=== PATIENT | female | born 2000 | race Native Hawaiian/Other Pacific Islander ===

== ENCOUNTER 2020-02-08 21:32 | Inpatient (IN) | payer OTHER ==
[2020-02-09] MEDS ORDERED: PROMETHAZINE 25 MG/1 ML VIAL IM ONE (00:06)
[2020-02-09] MEDS ORDERED: MORPHINE 10 MG/ML VIAL IM ONE (00:06)
[2020-02-09] MEDS ORDERED: miSOPROStoL 200 MCG TABLET BC PRN (00:08)
[2020-02-09] MEDS ORDERED: OXYTOCIN 10 UNIT/ML VIAL IM PRN (00:08)
[2020-02-09] MEDS ORDERED: SODIUM CHLORIDE FLUSH 0.9% 10 ML SYRINGE IVP PRN (00:08)
[2020-02-09] MEDS ORDERED: ONDANSETRON 4 MG/2 ML VIAL IVP PRN ×2 (00:08→11:31)
[2020-02-09] MEDS ORDERED: LIDOCAINE-MPF 1% 30 ML VIAL ID PRN (00:08)
[2020-02-09] MEDS ORDERED: TRANEXAMIC ACID 1,000 MG in SODIUM CHLORIDE 0.9% 100ML 100 ML IV PRN (00:08)
[2020-02-09] MEDS ORDERED: CARBOPROST TROMETHAMINE 250 MCG/ML AMP IM PRN (00:08)
[2020-02-09] MEDS ORDERED: METHYLERGONOVINE 0.2 MG/ML VIAL IM PRN (00:08)
--- NOTE | 2020-02-09 00:13 | HISTORY & PHYSICAL EXAMINATION ---
Admit History - : 1 Parity: 0 Care: positive: [place] Risk/History: positive: None Complications This : positive: None - Mother's Labs Mother's Blood Type: positive: B Mother's RH: positive: Positive GBS: positive: Group B Step Negative Rubella Status: positive: Non-immune - Other Maternal History Other Maternal History: Patient is a 19 yo at 39+6 wga here in early labor Has been having contractions for several days, now Q3-5 min. Significant pressure. No LOF or VB. Endorses FM. Unchanged on serial exams but wants to proceed with augmentation. Desires therapeutic rest overnight. uncomplicated. Hx of latent TB, treated with ppx. Neg CXR. Rubella non-immune Initial U/S: 10.4wks c/w LMP for CHARLENE of 02/09/2020 B pos/Rubella - is now *NON immune* discussed MMR VZV immune Gentic testing: Quad- neg. CF neg FAS: 85% for weight. 3Vc. placenta posterior, RIA wnl. Glucola 101 TDAP 11/10/2019 GBS & GC/CT at 38.0 weeks at intital OB- neg/neg HSV: denies self and partner Breast pump Rx: given 01/26/2020 MOD: . "Wait and see" FOB: Tao. baby GIRL: name is SECRET pp contraception: PAP: 07/23/2019- negative (shift indicative of BV) Meds/Allgy - Home Medications Home Medications: Ambulatory Orders Medication Instructions Recorded Confirmed Iron,Carbonyl/Folic Acid/Mv-Mn 1 each PO 02/08/20 [Active Fe Tablet] No122/Iron/Folic Acid 324 PO DAILY 02/08/20 [ Multi Tablet] - Allergies Allergies/Adverse Reactions: Allergies Allergy/AdvReac Type Severity Reaction Status Date / Time No Known Drug Allergies Allergy Verified 02/08/20 22:25 Review of Systems - Other Findings Other Findings: As per HPI, otherwise remaining systems are negative. Physical - Abdominal Exam Vital Signs: Temp Pulse Resp BP Pulse Ox 98.1 F 73 20 120/80 100 02/08/20 22:09 02/08/20 22:09 02/08/20 22:09 02/08/20 22:02/08/20 22:09 Contraction Frequency (min/apart): Q3-5 min Contraction Intensity: positive: Moderate Uterine Resting Tone: positive: Soft - Monitoring Heart Rate Baseline: 130 mod zain 15x15 accels no decels Strip Review: positive: Category I - Presentation Presentation: positive: Vertex - Vaginal Exam Dilation (in cm): 3 Effacement (%): 80 Station: positive: -1 - Other Notes Labor Progress Note/Additional Text: RN exam for SVE GEN: NAD RESP: nl effort CV: RR ABD: gravid, S&NT, intermittent ctx NEURO: A&O PSYCH: appropriate affect Plan for Labor - Plan For Labor Plan for Labor: LATENT LABOR: Patient is not tolerating contractions and has been having intense contractions Q3-5 min No change in SVE Offered options of 1) going home 2) therapeutic rest 3) augmentation Patient is interested in therapeutic rest overnight with plan to augment in the am Does not want to go home and desires delivery of infant Morphine 5 mg IM with phenergan 25 mg IM x1 Admit to Observation FWB: Vertex, well grown, Cat I tracing, GBS neg -CEFM PAIN: Will have therapeutic rest overnight -Epidural as desired once labor ensures Admit to Observation
[2020-02-09] MEDS ORDERED: SODIUM CHLORIDE FLUSH 0.9% 10 ML SYRINGE IVP SCH (01:00)
[2020-02-09] MEDS ORDERED: OXYTOCIN/SODIUM CHLORIDE 500 ML IV SCH (01:00)
[2020-02-09 01:05] LABS: BASOPHILS % (AUTO) 0.3 %; EOSINOPHILS # (AUTO) 0.2 10^3/uL (0.0-0.7); EOSINOPHILS % (AUTO) 1.7 %; HGB - HEMOGLOBIN 12.4 g/dL (12.0-16.0); LYMPHOCYTES # (AUTO) 1.6 10^3/uL (1.5-3.5); LYMPHOCYTES % (AUTO) 14.6 %; MEAN CORPUSCULAR HEMOGLOBIN 31.3 pg (27.0-31.0); MEAN CORPUSCULAR HGB CONC 34.1 g/dL (32.0-36.0); MEAN CORPUSCULAR VOLUME 91.9 fL (81.0-99.0); MEAN PLATELET VOLUME 10.2 fL (7.9-10.8); MONOCYTES # (AUTO) 0.7 10^3/uL (0.0-1.0); NEUTROPHILS # (AUTO) 8.1 10^3/uL (1.5-6.6); PLT - PLATELET COUNT 204 10^3/uL (130-450); RED BLOOD COUNT 3.96 10^6/uL (4.20-5.40); RED CELL DISTRIBUTION WIDTH 12.6 % (12.0-15.0); WHITE BLOOD COUNT 10.6 x10^3/uL (4.8-10.8)
[2020-02-09] MEDS: LACTATED RINGERS 1,000 ML IV SCH ×2 (01:08→18:17)
--- NOTE | 2020-02-09 07:50 | PROVIDER PROGRESS NOTE ---
Subjective - Prog Note Date Prog Note Date: 02/09/20 Prog Note Time: 07:30 - Subjective Subjective: Patient continues to contract after therapeutic rest overnight. Cat I tracing SVE /-2 with bulging bag; minimal change in last 2 hours Will proceed with pitocin augmentation Written consent obtained Starting pit per protocol GBS neg Objective - Lab Results Fish Bones: 02/09/20 00:31 Other Labs: Lab Results x24hrs 02/09/20 Range/Units 00:31 WBC 10.6 (4.8-10.8) x10^3/uL RBC 3.96 L (4.20-5.40) 10^6/uL Hgb 12.4 (12.0-16.0) g/dL Hct 36.4 L (37.0-47.0) % MCV 91.9 (81.0-99.0) fL MCH 31.3 H (27.0-31.0) pg MCHC 34.1 (32.0-36.0) g/dL RDW 12.6 (12.0-15.0) % Plt Count 204 (130-450) 10^3/uL MPV 10.2 (7.9-10.8) fL Neut # (Auto) 8.1 H (1.5-6.6) 10^3/uL Lymph # (Auto) 1.6 (1.5-3.5) 10^3/uL [place] # (Auto) 0.7 (0.0-1.0) 10^3/uL Eos # (Auto) 0.2 (0.0-0.7) 10^3/uL Baso # (Auto) 0.0 (0.0-0.1) 10^3/uL Absolute Nucleated RBC 0.00 x10^3/uL Nucleated RBC % 0.0 /100WBC
[2020-02-09] MEDS ORDERED: miSOPROStoL 100 MCG TABLET BC SCH (08:00)
--- NOTE | 2020-02-09 11:07 | ANESTHESIA ---
Pre-Anesthesia VS, & Labs - Diagnosis active labor - Procedure vaginal delivery Vital Signs: Temp Pulse Resp BP Pulse Ox 36.8 C 70 16 116/76 100 02/09/20 07:15 02/09/20 07:15 02/09/20 07:15 02/09/20 07:15 02/08/20 22:09 Height 5 ft Weight (kg) 76.204 kg - NPO Other (clear liquids) - Is Patient ?: Yes - Lab Results Current Lab Results: Laboratory Tests 02/09/20 00:31: WBC 10.6, RBC 3.96 L, Hgb 12.4, Hct 36.4 L, MCV 91.9, MCH 31.3 H , MCHC 34.1, RDW 12.6, Plt Count 204, MPV 10.2, Neut # (Auto) 8.1 H, Lymph # (Auto) 1.6, [place] # (Auto) 0.7, Eos # (Auto) 0.2, Baso # (Auto) 0.0, Absolute Nucleated RBC 0.00, Nucleated RBC % 0.0 Fish Bones: 02/09/20 00:31 Home Medications and Allergies Home Medications: Ambulatory Orders Iron,Carbonyl/Folic Acid/Mv-Mn [Active Fe Tablet] 1 each PO 02/08/20 No122/Iron/Folic Acid [ Multi Tablet] 324 PO DAILY 02/08/20 Active Medications Acetaminophen (Tylenol) 650 mg PO Q6H PRN PRN Reason: Pain or Fever Carboprost Tromethamine (Hemabate) 250 mcg IM Q15M PRN PRN Reason: Step 4: Hemorrhage protocol Stop: 02/11/20 00:08 Lactated Ringer's (Lr) 1,000 mls @ 100 mls/hr IV .Q10H CHADD Last Admin: 02/09/20 01:08 Dose: 100 mls/hr Documented by: Oxytocin/Sodium Chloride (Pitocin/Sodium Chloride) 500 mls @ 999 mls/hr IV PRN PRN; Protocol PRN Reason: POST- HEMORR PREVENTION Stop: 02/11/20 00:08 Tranexamic Acid 1,000 mg/ (Sodium Chloride) 110 mls @ 660 mls/hr IV ONCE PRN PRN Reason: EBL >1200mL and within 3hr Stop: 02/11/20 00:08 Oxytocin/Sodium Chloride (Pitocin/Sodium Chloride) 500 mls @ 1 mls/hr IV TITR CHADD; Protocol Last Titration: 02/09/20 09:15 Dose: 4 milliunit/min, 4 mls/hr Documented by: Lidocaine HCl (Xylocaine-Mpf 1% Vial) 30 ml ID ONCE PRN PRN Reason: PERINEAL REPAIR Stop: 02/11/20 00:08 Methylergonovine Maleate (Methergine Inj) 0.2 mg IM ONCE PRN PRN Reason: Step 2: Hemorrhage protocol Stop: 02/11/20 00:08 Misoprostol (Cytotec) 800 mcg BC ONCE PRN PRN Reason: Step 3: Hemorrhage protocol Stop: 02/11/20 00:08 Misoprostol (Cytotec) 50 mcg BC Q4HR CHADD Ondansetron HCl (Zofran Inj) 4 mg IVP Q4HR PRN PRN Reason: Nausea / Vomiting Oxytocin (Pitocin) 10 unit IM ONCE PRN PRN Reason: Step one: If no IV access Stop: 02/11/20 00:08 Sodium Chloride (Normal Saline Flush 0.9%) 10 ml IVP 0100,0900,1700 CHADD Sodium Chloride (Normal Saline Flush 0.9%) 10 ml IVP PRN PRN PRN Reason: NEEDED PER PROVIDER ORDERS Iron,Carbonyl/Folic Acid/Mv-Mn [Active Fe Tablet] 1 each PO 02/08/20 No122/Iron/Folic Acid [ Multi Tablet] 324 PO DAILY 02/08/20 Allergies/Adverse Reactions: Allergies Allergy/AdvReac Type Severity Reaction Status Date / Time No Known Drug Allergies Allergy Verified 02/08/20 22:25 Anes History & Medical History - Anesthetic History Family history of Anesthesia Complications: Denies Family history of Malignant Hyperthermia: Denies - Medical History Cardiovascular: reports: None Pulmonary: reports: Tuberculosis (history of latent) Gastrointestinal: reports: None Urinary: reports: None Neuro: reports: None Musculoskeletal: reports: None Endocrine/Autoimmune: reports: None Blood Disorders: reports: None Skin: reports: None Smoking Status: Never smoker Psychosocial: reports: No issues indicated - Obstetrical History : 1 Parity: 0 Events: positive: None Complications: positive: None Exam General: Alert, Oriented x3, Cooperative, No acute distress Dental: WNL Mouth Openin Fingerbreadth Neck Mobility: Normal Mallampati classification: II Mental/Cognitive Status: Alert/Oriented X3, Normal for patient Plan Anesthesia Type: Epidural Consent for Procedure(s) Verified and Reviewed: Yes Code Status: Attempt Resuscitation ASA classification: 2-Mild systemic disease Is this case an emergency?: No
[2020-02-09] MEDS ORDERED: ROPIVACAINE 0.2% 200 MG/100 ML BAG EP ONE (11:10)
[2020-02-09] MEDS ORDERED: ePHEDrine 50 MG/ML VIAL IVP PRN (11:31)
[2020-02-09] MEDS ORDERED: NALBUPHINE 10 MG/ML AMP IVP PRN (11:31)
[2020-02-09] MEDS ORDERED: NALOXONE 0.4 MG/ML VIAL IVP PRN (11:31)
[2020-02-09] MEDS ORDERED: ROPIVACAINE 0.2% 200 MG/100 ML BAG EP PRN (11:31)
[2020-02-09] MEDS: ACETAMINOPHEN 325 MG TABLET PO PRN ×2 (18:09→23:50)
--- NOTE | 2020-02-09 19:40 | PROVIDER PROGRESS NOTE ---
Subjective - Prog Note Date Prog Note Date: 02/09/20 Prog Note Time: 17:35 - Subjective Subjective: Late entry. Patient is comfortable with epidurdal. Sitting in high Fowlers. Chucks shows blood tinged fluid suggestive of SROM, timing unknown. UOP has slowed byt is still appropriate. Had 30 cc over the last hour and 100 cc over 3 hours. Pitocin at 4 mU/min. SVE showed 2 cm posterior lip and 1 cm on side. Forebag was ruptured artificially. Blood tinged fluid. Cat I tracing Cont with IOL Anticipate Objective - Vital Signs/Intake & Output Intake & Output: Intake & Output 02/06/20 02/07/20 02/08/20 02/09/20 23:59 23:59 23:59 23:59 Intake Total 1002.984 Output Total 30 Balance 972.984 - Lab Results Fish Bones: 02/09/20 00:31 Other Labs: Lab Results x24hrs 02/09/20 Range/Units 00:31 WBC 10.6 (4.8-10.8) x10^3/uL RBC 3.96 L (4.20-5.40) 10^6/uL Hgb 12.4 (12.0-16.0) g/dL Hct 36.4 L (37.0-47.0) % MCV 91.9 (81.0-99.0) fL MCH 31.3 H (27.0-31.0) pg MCHC 34.1 (32.0-36.0) g/dL RDW 12.6 (12.0-15.0) % Plt Count 204 (130-450) 10^3/uL MPV 10.2 (7.9-10.8) fL Neut # (Auto) 8.1 H (1.5-6.6) 10^3/uL Lymph # (Auto) 1.6 (1.5-3.5) 10^3/uL [place] # (Auto) 0.7 (0.0-1.0) 10^3/uL Eos # (Auto) 0.2 (0.0-0.7) 10^3/uL Baso # (Auto) 0.0 (0.0-0.1) 10^3/uL Absolute Nucleated RBC 0.00 x10^3/uL Nucleated RBC % 0.0 /100WBC
--- NOTE | 2020-02-09 20:04 | PROVIDER PROGRESS NOTE ---
Subjective - Prog Note Date Prog Note Date: 02/09/20 Prog Note Time: 19:59 - Subjective Subjective: No significant change in SVE from prior exam. Pitocin had been at 5 mU/min for an extended period Offered IUPC, RN feels comfortable increasing pitocin more aggressively. CTX had been spacing to Q4-5 min for periods Blood tinged fluid Cat I tracing Increase pitocin more aggressively If no change within the hour, will placed IUPC. Objective - Vital Signs/Intake & Output Intake & Output: Intake & Output 02/06/20 02/07/20 02/08/20 02/09/20 23:59 23:59 23:59 23:59 Intake Total 1002.984 Output Total 30 Balance 972.984 - Lab Results Fish Bones: 02/09/20 00:31 Other Labs: Lab Results x24hrs 02/09/20 Range/Units 00:31 WBC 10.6 (4.8-10.8) x10^3/uL RBC 3.96 L (4.20-5.40) 10^6/uL Hgb 12.4 (12.0-16.0) g/dL Hct 36.4 L (37.0-47.0) % MCV 91.9 (81.0-99.0) fL MCH 31.3 H (27.0-31.0) pg MCHC 34.1 (32.0-36.0) g/dL RDW 12.6 (12.0-15.0) % Plt Count 204 (130-450) 10^3/uL MPV 10.2 (7.9-10.8) fL Neut # (Auto) 8.1 H (1.5-6.6) 10^3/uL Lymph # (Auto) 1.6 (1.5-3.5) 10^3/uL [place] # (Auto) 0.7 (0.0-1.0) 10^3/uL Eos # (Auto) 0.2 (0.0-0.7) 10^3/uL Baso # (Auto) 0.0 (0.0-0.1) 10^3/uL Absolute Nucleated RBC 0.00 x10^3/uL Nucleated RBC % 0.0 /100WBC
[2020-02-09] MEDS ORDERED: SODIUM CHLORIDE 0.9% MINIBAG 100 ML IV ONE (21:43)
[2020-02-09] MEDS ORDERED: PIPERACILLIN/TAZOBACTAM 3.375 GM in SODIUM CHLORIDE 0.9% MINIBAG 100 ML IV SCH (22:00)
[2020-02-09] MEDS: OXYTOCIN/SODIUM CHLORIDE 500 ML IV PRN ×2 (22:25→23:01)
[2020-02-09] MEDS ORDERED: miSOPROStoL 100 MCG TABLET BC ONE (22:53)
[2020-02-09] MEDS ORDERED: miSOPROStoL 200 MCG TABLET ONE (22:56)
--- NOTE | 2020-02-09 23:21 | DELIVERY NOTE ---
Delivery Note - Labor Labor: positive: Induced by oxytocin - Infant Delivery Method Delivery Method: positive: Spontaneous vaginal delivery - Cervical Ripening Method Cervical Ripening Method: positive: Oxytocin - Presentation Presentation: positive: Vertex - Nuchal Cord Nuchal Cord: positive: None - Anesthetic Anesthetic Type: - Amniotic Fluid Description Amniotic Fluid Description: positive: Clear, Bloody - Laceration Laceration: positive: 2nd degree, Labial - Suture Suture Type: positive: Vicryl Suture Size: positive: 3-0 - Delivery Outcome Delivery Outcome: positive: Livebirth - [place]: positive: Placed in direct skin contact with mother, Stimulated, Warmed, [place] used [place] sex: positive: Female - Cord Cord: positive: 3 vessels - Placenta Placenta: positive: Intact, Expressed - Estimated Blood Loss Estimated Blood Loss (in cc): 300 - Post Delivery Events Post Delivery Events: positive: No post delivery events - Delivery Comments (Free Text/Narrative) Delivery Comments (Free Text/Narrative): STAGE I: Patient is a 19 yo at 39+6 wga who presented in early labor. She had been having contractions for several days, now Q3-5 min. Initial SVE was 3/80/-1. Unchanged on serial exams but wanted to proceed with augmentation due to exhaustion in the setting of prolonged latent stage. Desired therapeutic rest overnight. Received morphine 5 mg and phenergan 25 mg IM and rested overnight. On the morning of 02/09/20, cervix was 4 cm dilated but continued to make slow progress. She was augmented with pitocin through the second stage, reaching a max dose of 9 mU/min. Epidural for pain management. GBS negative, antibiotics were not indicated. At approximately 17:20, it appeared that membranes had spontaneously ruptured. A forebag was artificially ruptured and amniotic fluid was blood tinged. She progressed to complete at 21:20. She had one febrile temperature and several borderline febrile temperatures despite administration of acetaminophen 1000 mg. Neither patient for fetus showed tachycardia. However, given the proximity of the febrile tempt to the second stage, a dose of piperacillin-tazobactam 3.375 mg IV was given. Category I tracing throughout Stage I labor. STAGE II: Patient pushed well for 57 minutes to deliver a viable female infant from vertex presentation. Head and shoulders delivered without difficulty. was delivered to patient's chest. Cord was clamped x2 and cut after cessations had ceased. No nuchal cord. Apgars were 8/9, weight 2955g. STAGE III: Placenta delivered at 22:30 with manual expression and gentle downward traction on the umbilical cord. It was examined and found to be intact. Examination of the perineum revealed bilateral 2nd degree labial lacerations. They were repaired in the usual sterile fashion with 3-0 Vicryl. Blood loss was slightly greater than expected at 300 mL. Patient received misoprostol 600 mcg BC to assist in maintaining uterine atony. Good hemostasis was noted.
[2020-02-09] MEDS ORDERED: SIMETHICONE CHEW 80 MG TABLET PO PRN (23:34)
[2020-02-09] MEDS ORDERED: ONDANSETRON ODT 4 MG TABLET TL PRN (23:34)
[2020-02-09] MEDS ORDERED: DOCUSATE SODIUM 100 MG CAPSULE PO PRN (23:34)
[2020-02-09] MEDS ORDERED: HYDROCORTISONE 1% CREAM 28 GM TUBE PR PRN (23:34)
[2020-02-09] MEDS ORDERED: LACTATED RINGERS 1,000 ML IV SCH (23:45)
[2020-02-10] MEDS: IBUPROFEN 600 MG TABLET PO SCH ×2 (00:12→17:23)
[2020-02-10] MEDS ORDERED: LIDOCAINE-MPF 1% 5 ML VIAL ONE (01:20)
[2020-02-10] MEDS ORDERED: PIPERACILLIN/TAZOBACTAM 3.375 GM in SODIUM CHLORIDE 0.9% MINIBAG 100 ML IV ONE (09:00)
[2020-02-10] MEDS: ACETAMINOPHEN 500 MG TABLET PO SCH (17:23)
[2020-02-11] MEDS: ACETAMINOPHEN 500 MG TABLET PO SCH ×2 (01:54→16:14)
[2020-02-11] MEDS: IBUPROFEN 600 MG TABLET PO SCH ×3 (06:11→14:05)
--- NOTE | 2020-02-11 07:58 | PROVIDER PROGRESS NOTE ---
Subjective - Prog Note Date Prog Note Date: 02/10/20 Prog Note Time: 11:30 - Subjective Subjective: Up and ambulating. Tolerating po. Pain well managed Voiding Objective - Vital Signs/Intake & Output Reviewed Vital Signs: Yes Vital Signs: Vital Signs x48h Temp Pulse Resp BP Pulse Ox 02/11/20 05:54 56 L 126/86 H 02/11/20 04:45 97.5 F L 58 L 16 156/93 H 100 02/11/20 00:08 97.3 F L 62 16 106/78 98 Intake & Output: Intake & Output 02/08/20 02/09/20 02/10/20 02/11/20 23:59 23:59 23:59 23:59 Intake Total 1502.984 Output Total 230 200 Balance 1272.984 -200 - Objective General Appearance: positive: No acute distress Respiratory: positive: Breath sounds nml Cardiovascular: positive: Regular rate & rhythm Abdomen: positive: Non-tender, Other (FF belowumbi) Skin: positive: Color nml Extremities: positive: Non-tender, No pedal edema - Lab Results Fish Bones: 02/09/20 00:31 Assessment/Plan - Problem List (1) Vaginal delivery Impression: Routine pp care Anticipate DC home tomorrow
--- NOTE | 2020-02-11 16:34 | PROVIDER PROGRESS NOTE ---
Subjective - Prog Note Date Prog Note Date: 02/11/20 Prog Note Time: 16:32 - Subjective Subjective: Patient is doing well. Has been up and ambulating, tolerating po, pain well managed. Voiding. being observed until tomorrow am. Labile BPs in mild r jewell and then normal on next assessment. No PIH symptoms. Objective - Vital Signs/Intake & Output Vital Signs: Vital Signs x48h Temp Pulse Resp BP Pulse Ox 02/11/20 15:51 97.5 F L 56 L 20 146/93 H 100 02/11/20 12:23 97.3 F L 62 18 138/89 H 100 Intake & Output: Intake & Output 02/08/20 02/09/20 02/10/20 02/11/20 23:59 23:59 23:59 23:59 Intake Total 9204.316 2465.016 Output Total 230 200 Balance 1325.984 -200 1750.016 - Objective General Appearance: positive: No acute distress Neck: positive: Nml inspection Respiratory: positive: No respiratory distress Cardiovascular: positive: Other (RR) Peripheral Pulses: 1+ Dorsalis pedis (R), 1+ Dorsalis pedis (L) Abdomen: positive: Non-tender, Other (FF below umbi No RUQ pain) Back: positive: Nml inspection Skin: positive: Color nml Extremities: positive: Non-tender, No pedal edema - Lab Results Fish Bones: 02/09/20 00:31 Assessment/Plan - Problem List (1) Vaginal delivery Impression: Routine post op care Anticiprate DC home tomorrow Monitor BPs
[2020-02-11] MEDS ORDERED: MEASLES,MUMPS & RUBELLA VACC 0.5 ML VIAL SUBQ ONE (16:35)
[2020-02-12] MEDS: IBUPROFEN 600 MG TABLET PO SCH ×2 (00:43→09:24)
[2020-02-12] MEDS: ACETAMINOPHEN 500 MG TABLET PO SCH (09:24)
[2020-02-12] MEDS ORDERED: MEASLES,MUMPS & RUBELLA VACC 0.5 ML VIAL SUBQ ONE (10:00)
[2020-02-12 16:01] VITALS: BP 130/86
--- NOTE | 2020-02-12 19:31 | Labor Flowsheet ---
Labor Flowsheet Datetime Report Generated by CPN: 02/12/2020 19:31 Datetime: 02/10/2020 00:31 VITAL SIGNS NBP Sys/Juana/Mean (mmHg): 147 : 81 : 97 Pulse: 73 Datetime: 02/09/2020 23:00 Temperature Route: Oral Datetime: 02/09/2020 22:46 Respirations: 18 SpO2 (%): 100 Datetime: 02/09/2020 22:40 Anesthesia Comments: epidural pump off Datetime: 02/09/2020 22:30 Stage of : Recovery Temperature (C): 36.8 Pain Presence: Intermittent Pain Type: Cramping Datetime: 02/09/2020 22:20 LaborFlag: Labor Datetime: 02/09/2020 22:15 UTERINE ACTIVITY Monitor Mode: External Frequency (min): 2-3 Quality: Strong Duration (sec): 40-60 Pattern: Normal: <= 5 Contractions in 10 Minutes Resting Tone (Palpate): Relaxed ASSESSMENT A Monitor Mode: External US FHR Baseline Rate : 150 FHR Baseline Changes: No Baseline Change Variability: Moderate 6-25 bpm Accelerations: 15X15 Category: Category II Datetime: 02/09/2020 22:00 Decelerations: Variable ANESTHESIA Anesthesia Plans: Epidural Anesthesia Level Check: T9 Datetime: 02/09/2020 21:52 STAGE 2 Pushing Progress: Descent with Pushing Datetime: 02/09/2020 21:50 MEDICATIONS Pitocin (milliunits): Increased to @ 9 Datetime: 02/09/2020 21:30 PAIN Pain Scale: 10 (Annotations: pushing PCEA button) Datetime: 02/09/2020 21:28 Comments: lauren out 400ml Datetime: 02/09/2020 21:20 VAGINAL EXAM Dilatation (cm): 10.0 Datetime: 02/09/2020 21:15 Monitor Interventions for UA: [place] Adjusted Monitor Interventions for FHR: Ultrasound Adjusted Datetime: 02/09/2020 20:57 Patient Position/Activity: Left Lateral Patient Care Comments: Dr Mcsorley notified of L-side pain Datetime: 02/09/2020 20:47 TEACHING Instructional Method: Patient Instructed Plan of Care: Plan of Care Discussed; Labor Unit Routine: Monitoring; IV Pumps; Safety/Fall Risk Prevention Labor/Induction: Augmentation Datetime: 02/09/2020 20:15 Pitocin Checklist: At Least 1 Acceleration of 15 bpm x 15 Seconds in 30 Minutes or Adequate Variabi lity Datetime: 02/09/2020 19:53 Exam by: Dr Frieda Cervix, Consistency: Soft Vaginal Exam Comments: cervix still swollen Datetime: 02/09/2020 19:40 MATERNAL ASSESSMENT Level of Consciousness: Alert Headache: Denies Breath Sounds, Left: Clear and Equal Breath Sounds, Right: Clear and Equal Nausea/Vomiting: Denies RUQ Epigastric Pain: Denies Datetime: 02/09/2020 19:00 Vital Sign Comments: Dr. Dexter notified of elevated temperature. COMMUNICATION Communication: Report Given to @ [facility] RN Communication Comments: Shift report Datetime: 02/09/2020 18:09 Analgesics/Sedatives: Tylenol (mg) @ 650 Datetime: 02/09/2020 17:26 Membrane Status: Ruptured Membranes Ruptured Date/Time: 02/09/2020 17:26 Membranes Rupture Method: Artificial Amniotic Fluid Color: Bloody Amniotic Fluid Amount: Moderate Membrane Comments: SROM @ 1726; Dr. Dexter AROMed bulging forebag. Datetime: 02/09/2020 16:41 Provider Notified (Name): Dr. Malave Datetime: 02/09/2020 16:30 Effacement (%): 90 Station: 0 Vaginal Bleeding: Normal Show Cervix, Position: Midposition Datetime: 02/09/2020 13:45 PATIENT CARE Oxygen Method: Room Air Datetime: 02/09/2020 12:35 I/O Interventions: Lauren Cath Inserted Datetime: 02/09/2020 11:18 Epidural Procedure: Test Dose Datetime: 02/09/2020 11:09 PROCEDURE TIME OUT Procedure Verify: Correct Patient Identity; Accurate Procedure Consent Form; Agreement on Procedure to be Done; Correct Patient Position Epidural Positioning: Sitting Datetime: 02/09/2020 10:45 Notification Reason: Patient Request Datetime: 02/09/2020 10:43 Pain Location: Abdomen Pain Relief Measures: Comfort Measures Pain Coping: Requesting Pain Medication or Epidural Comfort Measures: Breathing/Relaxation; Family Support Datetime: 02/09/2020 09:15 Contraction Comments: breathing through ctx Datetime: 02/09/2020 08:13 Hygiene: Underpad Changed Datetime: 02/09/2020 07:10 DTR's/Clonus: DTRs 2+
--- NOTE | 2020-02-13 10:42 | PROVIDER PROGRESS NOTE ---
Subjective - Prog Note Date Prog Note Date: 02/12/20 Prog Note Time: 13:24 - Subjective Subjective: Patient doing well. No complaints.Patient is up and ambulating, tolerating po, and voiding. Pain is well managed with pain medications. Infant remains under observation. Objective - Vital Signs/Intake & Output Vital Signs: 98.1 68 130/86 16 100 Intake & Output: Intake & Output 02/10/20 02/11/20 02/12/20 02/13/20 23:59 23:59 23:59 23:59 Intake Total 1750.016 Output Total 200 Balance -200 1750.016 - Objective General Appearance: positive: No acute distress Neck: positive: Nml inspection Respiratory: positive: No respiratory distress, Breath sounds nml Cardiovascular: positive: Regular rate & rhythm Abdomen: positive: Non-tender, Other (FF below umbi) Extremities: positive: Non-tender Neurologic/Psychiatric: positive: Oriented x3 - Lab Results Fish Bones: 02/09/20 00:31 Assessment/Plan - Problem List (1) Vaginal delivery Impression: PPD#3: Routine pp care Awaiting clearance from pediatrics to discharge Routine DC instructions given DC to home when infant is cleared.
--- NOTE | 2020-02-13 10:49 | DISCHARGE SUMMARY ---
"Discharge Summary Discharge Date: 02/12/20 Condition at Discharge: Good Discharge Disposition: 01 Home, Self Care - DIAGNOSES Admission Diagnoses: IUP at 39+6 wga Prodromal labor Discharge Diagnoses with Status of Each Condition: Same and delivery of term gestation - HPI History of Present Illness: Patient is a 19 yo at 39+6 wga who presented in early labor. She had been having contractions for several days, now Q3-5 min. Initial SVE was 3/80/-1. Unchanged on serial exams but wanted to proceed with augmentation due to exhaustion in the setting of prolonged latent stage. Desired therapeutic rest overnight. Received morphine 5 mg and phenergan 25 mg IM and rested overnight. - CONSULTS | PROCEDURES Procedures: Spontaneous vaginal delivery - HOSPITAL COURSE Hospital Course: STAGE I: Patient is a 19 yo at 39+6 wga who presented in early labor. She had been having contractions for several days, now Q3-5 min. Initial SVE was 3/80/-1. Unchanged on serial exams but wanted to proceed with augmentation due to exhaustion in the setting of prolonged latent stage. Desired therapeutic rest overnight. Received morphine 5 mg and phenergan 25 mg IM and rested overnight. On the morning of 02/09/20, cervix was 4 cm dilated but continued to make slow progress. She was augmented with pitocin through the second stage, reaching a max dose of 9 mU/min. Epidural for pain management. GBS negative, antibiotics were not indicated. At approximately 17:20, it appeared that membranes had spontaneously ruptured. A forebag was artificially ruptured and amniotic fluid was blood tinged. She progressed to complete at 21:20. She had one febrile temperature and several borderline febrile temperatures despite administration of acetaminophen 1000 mg. Neither patient for fetus showed tachycardia. However, given the proximity of the febrile tempt to the second stage, a dose of piperacillin-tazobactam 3.375 mg IV was given. Category I tracing throughout Stage I labor. STAGE II: Patient pushed well for 57 minutes to deliver a viable female from vertex presentation. Head and shoulders delivered without difficulty. was delivered to patient's chest. Cord was clamped x2 and cut after ce ssations had ceased. No nuchal cord. Apgars were 8/9, weight 2955g. STAGE III: Placenta delivered at 22:30 with manual expression and gentle downward traction on the umbilical cord. It was examined and found to be intact. Examination of the perineum revealed bilateral 2nd degree labial lacerations. They were repaired in the usual sterile fashion with 3-0 Vicryl. Blood loss was slightly greater than expected at 300 mL. Patient received misoprostol 600 mcg BC to assist in maintaining uterine atony. Good hemostasis was noted. course was unremarkable. Infant was observed for 2 days given peripartum fever. Discharged to home on 02/12/2020. - ALLERGIES Allergies/Adverse Reactions: Allergies Allergy/AdvReac Type Severity Reaction Status Date / Time No Known Drug Allergies Allergy Verified 02/08/20 22:25 - MEDICATIONS Home Medications: Ambulatory Orders Medication Instructions Recorded Confirmed Iron,Carbonyl/Folic Acid/Mv-Mn 1 each PO 02/08/20 [Active Fe Tablet] No122/Iron/Folic Acid 324 PO DAILY 02/08/20 [ Multi Tablet] - LABS Result Diagrams: 02/09/20 00:31 - FOLLOW UP Follow Up: 1 week - TIME SPENT Time Spent in Discharge (Minutes): 30"
== END 2020-02-12 18:00 | disposition home or self-care (01) | DRG 806 ==
LOC: WFO 21:32 → FBP 21:33 → WFO 02-09 01:17 → FBP 02-09 01:18 → OBSVTOIN 02-09 07:45 → OBS 02-10 02:26
PROVIDERS: ADMIT Obstetrics & Gynecology; ATTEND Obstetrics & Gynecology
PROC: 10E0XZZ Delivery of Products of Conception, External Approach (ICD-10-PCS; principal; 2020-02-09)
PROC: 0KQM0ZZ Repair Perineum Muscle, Open Approach (ICD-10-PCS; 2020-02-09)
DX: O63.0 Prolonged first stage (of labor) (principal); O75.2 Pyrexia during labor, not elsewhere classified; Z37.0 Single live birth; O75.81 Maternal exhaustion complicating labor and delivery; O70.1 Second degree perineal laceration during delivery; Z3A.39 39 weeks gestation of pregnancy; Z86.15 Personal history of latent tuberculosis infection
CPT/HCPCS: 85025; 96360; 96361; A9270; G0378; J7120

== ENCOUNTER 2020-10-12 08:00 | Outpatient (CLI) | payer OTHER ==
[2020-10-12 16:47] LABS: MUDS CUTOFF CONCENTRATIONS CUTOFF CONC BELOW:
[2020-10-12 17:01] LABS: GLUCOSE, URINE (UA) NEGATIVE (NEGATIVE); KETONES,URINE (UA) >=80 mg/dL (NEGATIVE); LEUKOCYTE ESTERASE, URINE NEGATIVE (NEGATIVE); NITRITE,URINE NEGATIVE (NEGATIVE); OCCULT BLOOD,URINE NEGATIVE (NEGATIVE); PH,URINE 6.5 PH (5.0-7.5); PROTEIN,URINE 30 mg/dL (NEGATIVE); UROBILINOGEN,URINE 1 (NORMAL) E.U./dL (NORMAL)
[2020-10-12 17:02] LABS: CLARITY,URINE HAZY (CLEAR)
[2020-10-12 17:07] LABS: BILIRUBIN,URINE SMALL (NEGATIVE); ICTOTEST,URINE POSITIVE
[2020-10-12 17:28] LABS: AMORPHOUS SEDIMENT,UR Few /LPF; BACTERIA,URINE Rare /HPF (None Seen); RBC,URINE 0-5 /HPF (0-5); SQUAMOUS EPITHELIAL CELL,UR RARE Squamous (<= Few); WBC,URINE 0-3 /HPF (0-5)
[2020-10-12 17:29] LABS: CRYSTALS,URINE 3-5 Ammonium Urate /LPF
[2020-10-12 17:30] LABS: AMPHETAMINE SCREEN,URINE NEGATIVE (NEGATIVE); BARBITURATE SCREEN,UR NEGATIVE (NEGATIVE); BENZODIAZEPINES SCREEN, URINE NEGATIVE (NEGATIVE); COCAINE SCREEN URINE NEGATIVE (NEGATIVE); METHADONE SCREEN, URINE NEGATIVE (NEGATIVE); METHAMPHETAMINES SCREEN, URINE NEGATIVE (NEGATIVE); OPIATE SCREEN, URINE NEGATIVE (NEGATIVE); OXYCODONE SCREEN, URINE NEGATIVE (NEGATIVE); PROPOXYPHENE SCREEN, URINE NEGATIVE (NEGATIVE); THC CANNABINOID SCREEN, URINE POSITIVE (NEGATIVE); TRICYCLIC ANTIDEPRESSANT,URINE NEGATIVE (NEGATIVE)
== END 2020-10-12 23:59 | disposition home or self-care (01) ==
LOC: LAB.R 08:00
PROVIDERS: ATTEND Obstetrics & Gynecology
DX: Z32.01 Encounter for pregnancy test, result positive (principal)
CPT/HCPCS: 80306; 80349; 81001; 81599; 87086

== ENCOUNTER 2020-10-16 07:47 | Outpatient (CLI) | payer OTHER ==
--- NOTE | 2020-10-18 10:13 | Ultrasound Report ---
PROCEDURE: OB First Trimester INDICATIONS: +PREG TEST OUTSIDE/PRIOR DATING DATA: Last menstrual period (LMP): 07/16/2020. LMP-based estimated date of delivery (CHARLENE): 04/22/2021. First dating scan (date and location): Today. Estimated date of delivery (CHARLENE) from first dating scan: 04/18/2021. TECHNIQUE: Real-time scanning was performed of the fetus and maternal pelvic organs, with image documentation. COMPARISON: None FINDINGS: Single intrauterine with heart rate of 187 bpm. RIA measures 8.1 cm. There is a perigestational hemorrhage which extends overlying the cervical os measuring 5.5 x 1.5 x 5 .4 cm and encompasses approximately 25% of the gestational sac. Embryo: Mean sac diameter and crown-rump length were obtained. THis was not reported as they are less reliabl e after the first trimester. Biparietal diameter: 2.4 cm corresponding to 14 weeks 0 days Head circumference: 9.0 cm corresponding to 14 weeks 0 days Abdominal circumference: 17.3 cm corresponding to 13 weeks 6 days Femur length: 1.0 cm corresponding to 13 weeks 0 days Measurement variability in dating: +/- 4 weeks by LMP, +/- 7 days by mean sac diameter (use before 6 weeks gestation if crown-rump length not able to be measured), +/- 5 days by crown-rump length (6-12 weeks gestation). Maternal organs: The ovaries are normal in size and appearance. Within the right ovary there is a 1.1 x 1.1 x 1.3 cm thick-walled cystic lesion with peripheral vascularity corresponding to a corpus pseu docyst. IMPRESSION: Single living intrauterine gestation with heart rate of 157 bpm corresponding to gestational ag e of 13 weeks 5 days and estimated date of delivery of 04/18/2021. There is a perigestational hemorrhage covering approximately 25% of the gestational sac and overlying the internal os. Right corpus luteal cyst. Reviewed by: Lalito Stevens DO on 10/16/2020 10:29 AM EDOUARD Approved by: Lalito Stevens DO on 10/16/2020 10:29 AM EDOUARD Station ID: [id number]
== END 2020-10-16 07:48 | disposition home or self-care (01) ==
LOC: DI 07:47
PROVIDERS: ATTEND Obstetrics & Gynecology
DX: Z32.01 Encounter for pregnancy test, result positive (principal); O20.8 Other hemorrhage in early pregnancy; Z3A.13 13 weeks gestation of pregnancy; O12.11 Gestational proteinuria, first trimester
CPT/HCPCS: 81001; 87086

== ENCOUNTER 2020-10-16 08:33 | Outpatient (CLI) | payer OTHER ==
[2020-10-16 09:08] LABS: BILIRUBIN,URINE NEGATIVE (NEGATIVE); GLUCOSE, URINE (UA) NEGATIVE (NEGATIVE); KETONES,URINE (UA) NEGATIVE (NEGATIVE); LEUKOCYTE ESTERASE, URINE NEGATIVE (NEGATIVE); NITRITE,URINE NEGATIVE (NEGATIVE); OCCULT BLOOD,URINE NEGATIVE (NEGATIVE); PH,URINE 6.5 PH (5.0-7.5); PROTEIN,URINE NEGATIVE (NEGATIVE); UROBILINOGEN,URINE 0.2 (NORMAL) E.U./dL (NORMAL)
[2020-10-16 09:10] LABS: CLARITY,URINE CLEAR (CLEAR)
[2020-10-16 09:17] LABS: BACTERIA,URINE None Seen /HPF (None Seen); RBC,URINE None Seen /HPF (0-5); SQUAMOUS EPITHELIAL CELL,UR NONE SEEN (<= Few); WBC,URINE 0-3 /HPF (0-5)
== END 2020-10-16 08:34 | disposition home or self-care (01) ==
LOC: LAB 08:33
PROVIDERS: ATTEND Obstetrics & Gynecology
DX: O12.11 Gestational proteinuria, first trimester (principal)
CPT/HCPCS: 81001; 87086

== ENCOUNTER 2020-10-21 12:36 | Outpatient (CLI) | payer OTHER ==
[2020-10-21 12:52] LABS: MUDS CUTOFF CONCENTRATIONS CUTOFF CONC BELOW:
[2020-10-21 12:55] LABS: BASOPHILS % (AUTO) 0.2 %; EOSINOPHILS # (AUTO) 0.1 10^3/uL (0.0-0.7); EOSINOPHILS % (AUTO) 1.2 %; HCT - HEMATOCRIT 30.9 % (37.0-47.0); HGB - HEMOGLOBIN 10.2 g/dL (12.0-16.0); LYMPHOCYTES # (AUTO) 1.2 10^3/uL (1.5-3.5); LYMPHOCYTES % (AUTO) 29.5 %; MEAN CORPUSCULAR HEMOGLOBIN 28.7 pg (27.0-31.0); MEAN PLATELET VOLUME 9.4 fL (7.9-10.8); MONOCYTES # (AUTO) 0.3 10^3/uL (0.0-1.0); MONOCYTES % (AUTO) 7.2 %; NEUTROPHILS # (AUTO) 2.5 10^3/uL (1.5-6.6); NEUTROPHILS % (AUTO) 61.7 %; PLT - PLATELET COUNT 190 10^3/uL (130-450); RED BLOOD COUNT 3.55 10^6/uL (4.20-5.40); RED CELL DISTRIBUTION WIDTH 12.3 % (12.0-15.0)
[2020-10-21 13:00] LABS: BILIRUBIN,URINE NEGATIVE (NEGATIVE); GLUCOSE, URINE (UA) NEGATIVE (NEGATIVE); KETONES,URINE (UA) NEGATIVE (NEGATIVE); LEUKOCYTE ESTERASE, URINE SMALL (NEGATIVE); NITRITE,URINE NEGATIVE (NEGATIVE); OCCULT BLOOD,URINE NEGATIVE (NEGATIVE); PH,URINE 6.5 PH (5.0-7.5); PROTEIN,URINE NEGATIVE (NEGATIVE); UROBILINOGEN,URINE 0.2 (NORMAL) E.U./dL (NORMAL)
[2020-10-21 13:03] LABS: CLARITY,URINE SL. CLOUDY (CLEAR)
[2020-10-21 13:05] LABS: RBC,URINE 0-5 /HPF (0-5); SQUAMOUS EPITHELIAL CELL,UR MANY Squamous (<= Few); WBC,URINE 0-3 /HPF (0-5)
[2020-10-21 13:06] LABS: BACTERIA,URINE Moderate /HPF (None Seen)
[2020-10-21 13:08] LABS: AMPHETAMINE SCREEN,URINE NEGATIVE (NEGATIVE); BARBITURATE SCREEN,UR NEGATIVE (NEGATIVE); BENZODIAZEPINES SCREEN, URINE NEGATIVE (NEGATIVE); COCAINE SCREEN URINE NEGATIVE (NEGATIVE); METHADONE SCREEN, URINE NEGATIVE (NEGATIVE); METHAMPHETAMINES SCREEN, URINE NEGATIVE (NEGATIVE); OPIATE SCREEN, URINE NEGATIVE (NEGATIVE); OXYCODONE SCREEN, URINE NEGATIVE (NEGATIVE); PROPOXYPHENE SCREEN, URINE NEGATIVE (NEGATIVE); THC CANNABINOID SCREEN, URINE NEGATIVE (NEGATIVE); TRICYCLIC ANTIDEPRESSANT,URINE NEGATIVE (NEGATIVE)
[2020-10-21 13:17] LABS: TOTAL PROTEIN,URINE TIMED 9 mg/dL
[2020-10-21 13:28] LABS: TOTAL PROTEIN 24HR,URINE 149 mg/24hr (40-150); TOTAL VOLUME 24HRS,URINE 1650 mL
[2020-10-22 12:41] LABS: HEPATITIS B SURFACE ANTIGEN NON-REACTIVE (NON-REACTIVE)
[2020-10-22 12:42] LABS: HEPATITIS C ANTIBODY NON-REACTIVE (NON-REACTIVE)
[2020-10-22 14:16] LABS: HIV AG/AB 4TH GEN NON-REACTIVE (NON-REACTIVE)
== END 2020-10-21 12:37 | disposition home or self-care (01) ==
LOC: LAB 12:36
PROVIDERS: ATTEND Obstetrics & Gynecology
DX: O12.11 Gestational proteinuria, first trimester (principal)
CPT/HCPCS: 36415; 80306; 81001; 84156; 85025; 86592; 86762; 86787; 86803; 86850; 86900; 86901; 87086; 87340; 87389

== ENCOUNTER 2020-10-29 10:13 | Outpatient (CLI) | payer OTHER ==
[2020-10-29 11:01] LABS: % IRON SATURATION 19 % (20-50); IRON 66 ug/dL (28-170); TOTAL IRON BINDING CAPACITY 354 ug/dL (250-450); TRANSFERRIN 253 mg/dL (192-382)
== END 2020-10-29 10:14 | disposition home or self-care (01) ==
LOC: LAB 10:13
PROVIDERS: ATTEND Obstetrics & Gynecology
DX: O99.019 Anemia complicating pregnancy, unspecified trimester (principal); Z11.3 Encounter for screening for infections with a predominantly sexual mode of transmission
CPT/HCPCS: 36415; 81599; 82728; 83020; 83021; 83540; 84466; 85014; 85018; 85041; 87491; 87591; 87661

== ENCOUNTER 2020-11-05 11:59 | Outpatient (CLI) | payer OTHER ==
[2020-11-09 05:52] LABS: AFP MOM 1.35; AGE RISK DOWN SYNDROME 1 IN 1124; CIGARETTE SMOKER? NOT GIVEN; DONOR AGE: EGG RETRIEVAL NOT GIVEN; DONOR EGG NO; ESTRIOL MOM 0.81; HCG MOM 0.93; HX OF NEURAL TUBE DEFECTS NO; INHIBIN A MOM 1.07; INSULIN DEPEND DIABETIC NO; MATERNAL WEIGHT 142 lbs; MSS DOWN SYNDROME RISK <1 IN 5000; MSS3 TRISOMY 18 RISK <1 IN 5000; NUMBER OF FETUSES 1; PREV PREGNANCY DOWN SYND NO; RISK FOR ONTD 1 IN 4150
== END 2020-11-05 12:00 | disposition home or self-care (01) ==
LOC: LAB 11:59
PROVIDERS: ATTEND Nurse Practitioner Obstetrics & Gynecology
DX: Z34.90 Encounter for supervision of normal pregnancy, unspecified, unspecified trimester (principal); Z36.8A Encounter for antenatal screening for other genetic defects
CPT/HCPCS: 81511

== ENCOUNTER 2020-12-02 16:15 | Outpatient (CLI) | payer OTHER ==
--- NOTE | 2020-12-03 13:23 | Ultrasound Report ---
PROCEDURE: OB Detailed Eval INDICATIONS: SUPERVISION OF OUTSIDE/PRIOR DATING DATA: Last menstrual period (LMP): 07/06/2020. LMP-based estimated date of delivery (CHARLENE): 04/22/2021. First dating scan (date and location): 10/16/2020. Estimated date of delivery (CHARLENE) from first dating scan: 04/18/2021. The below data below was generated using the ultrasound CHARLENE of 04/18/2021 TECHNIQUE: Real-time scanning was performed of the fetus, with image documentation and biometric measurements. Endovaginal scanning: Performed COMPARISON: 10/16/2020. FINDINGS: General: A single living intrauterine gestation is present. Presentation: There are multiple Placenta: Placental position is anterior, without previa. Amniotic fluid index: 13.3 cm, 5-24 cm normal. heart rate: 155 beats per minute. Maternal cervical canal: Closed and 6.8 cm long; normal length is 2.5 cm or more. biometrics: Biparietal diameter: 20 weeks 5 days Head circumference: 20 weeks 4 days Abdominal circumference: 20 weeks 2 days Femur length: 19 weeks 4 days Estimated gestational age from initial scan: 20 weeks 3. Composite gestational age from present scan: 20 weeks 0 days Estimated weight and percentile: 3295 g; 26 percentile Measurement variability in biometric dating: +/- 10 days from 12-20 weeks gestation, +/- 2 weeks from 20-30 weeks gestation, +/- 3 weeks at 30 weeks gestation or later. Small posterior subchorionic hemorrhage measuring 3.5 x 1.7 x 4.1 cm in the current study (5.5 x 1.5 x 5.4 cm previously). No retroplacental dissection associated with the small subchorionic hemorrhage. Anatomic survey: Neuro: Ventricles are normal at less than 10 mm. Cisterna magna is normal at 3-11 mm. Cerebellum i s normal in size and morphology. Nuchal skin fold: Normal at less than 6 mm between 14 and 20 weeks gestational age. Face: Nose and lips, facial profile are normal. Spine: No evidence for spina bifida. Heart: 4-chambered heart is present, with normal ventricular outflow tracts. Diaphragm: Diaphragm is intact. Stomach: Left-sided stomach is present. Kidneys: No hydronephrosis. Normal is less than 5 mm in 2nd trimester, less than 7 mm in 3rd trimester. Cord: 3 vessel cord has orthotopic insertion. Bladder: Normal in size. Extremities: All 4 extremities are visualized. IMPRESSION: 1. Single living intrauterine with appropriate interval growth. 2. Normal amniotic fluid index. 3. Estimated weight 3295 g corresponding to 26th percentile for gestational age. 4. Normal anatomic survey. 5. Small resolving subchorionic hemorrhage decreased in size compared to 10/16/2020. Reviewed by: Lizy Judge MD, PhD on 12/03/2020 1:21 PM PDT Approved by: Lizy Judge MD, PhD on 12/03/2020 1:21 PM PDT Station ID: [id number]
== END 2020-12-02 16:16 | disposition home or self-care (01) ==
LOC: DI 16:15
PROVIDERS: ATTEND Nurse Practitioner Obstetrics & Gynecology
DX: O46.8X2 Other antepartum hemorrhage, second trimester (principal); Z3A.20 20 weeks gestation of pregnancy

== ENCOUNTER 2021-01-11 16:19 | Outpatient (CLI) | payer OTHER ==
[2021-01-11 16:35] VITALS: BP 106/66
--- NOTE | 2021-01-12 12:43 | PROVIDER PROGRESS NOTE ---
- HPI Chief Complaint: Other Current : Current EDU 04/20/21 Gestation 25 Weeks and 6 Days 1 Vital Signs Temperature 37.3 C 01/11/21 16:31 Heart Rate 78 01/11/21 16:31 Respiratory Rate 18 01/11/21 16:31 Blood Pressure 106/66 01/11/21 16:31 Temperature 37.3 C 01/11/21 16:31 Heart Rate 78 01/11/21 16:31 Respiratory Rate 18 01/11/21 16:31 Blood Pressure 106/66 01/11/21 16:31 O2 Saturation - Procedures OB Procedure Performed: NST Diagnosis/Indication for NST: Other NST Procedure: NST Procedure Start Date 01/11/21 Start Time 16:30 Stop Time 17:00 Vibroacoustic Stimulation Used No Patient States Movement Yes - Plan Plan: NST reactive. FHR baseline 140s, moderate variability, + accels, no decels. No abnormality noted at present -suspect hiccups which have resolved. Pt released home with precautions. Verbalized understanding and denies further questions or concerns at this time. FINAL DIAGNOSIS: Abnormal heart rate- resolved.
== END 2021-01-11 17:00 | disposition home or self-care (01) ==
LOC: WFO 16:19 → FBP 16:21 → WFO 17:00
PROVIDERS: ATTEND Nurse Practitioner Obstetrics & Gynecology
DX: Z34.02 Encounter for supervision of normal first pregnancy, second trimester (principal)
CPT/HCPCS: 59025; 99213

== ENCOUNTER 2021-01-11 17:09 | Outpatient (CLI) | payer OTHER ==
[2021-01-11 18:27] LABS: HCT - HEMATOCRIT 31.2 % (37.0-47.0); HGB - HEMOGLOBIN 10.7 g/dL (12.0-16.0); MEAN CORPUSCULAR HEMOGLOBIN 31.4 pg (27.0-31.0); MEAN CORPUSCULAR HGB CONC 34.3 g/dL (32.0-36.0); MEAN CORPUSCULAR VOLUME 91.5 fL (81.0-99.0); MEAN PLATELET VOLUME 9.3 fL (7.9-10.8); RED BLOOD COUNT 3.41 10^6/uL (4.20-5.40); RED CELL DISTRIBUTION WIDTH 13.1 % (12.0-15.0); WHITE BLOOD COUNT 6.5 x10^3/uL (4.8-10.8)
== END 2021-01-11 17:10 | disposition home or self-care (01) ==
LOC: LAB 17:09
PROVIDERS: ATTEND Nurse Practitioner Obstetrics & Gynecology
DX: Z34.90 Encounter for supervision of normal pregnancy, unspecified, unspecified trimester (principal)
CPT/HCPCS: 36415; 82950; 85027

== ENCOUNTER 2021-03-22 18:57 | Outpatient (CLI) | payer OTHER ==
--- NOTE | 2021-03-23 08:55 | Ultrasound Report ---
PROCEDURE: OB F/U or Repeat INDICATIONS: UTERINE SIZE DATE DISCREPANCY OUTSIDE/PRIOR DATING DATA: Last menstrual period (LMP): 07/16/2020. LMP-based estimated date of delivery (CHARLENE): 04/22/2021. First dating scan (date and location): 10/16/2020. Estimated date of delivery (CHARLENE) from first dating scan: 04/18/2021. The below data below was generated using the ultrasound CHARLENE of 04/18/2021 TECHNIQUE: Real-time scanning was performed of the fetus, with image documentation and biometric measurements. COMPARISON: OB ultrasound 12/02/2020, 10/16/2020 FINDINGS: General: A single living intrauterine gestation is present. Presentation: Vertex Placenta: Placental position is anterior, without previa. Amniotic fluid index: 13.5 cm, within normal limits for gestational age. Largest pocket 4.3 cm heart rate: 138 beats per minute. Maternal cervical canal: 3.8 cm long; normal length is 2.5 cm or more. biometrics: Biparietal diameter: 9.1 cm 36 weeks 5 days Head circumference: 33.3 cm 38 weeks 1 day Abdominal circumference: 32.1 cm 36 weeks 0 days Femur length: 6.8 cm 34 weeks 5 days Estimated gestational age from initial scan: 36 weeks 1 day Composite gestational age from present scan: 36 weeks 3 days Estimated weight and percentile: 2811g 46th percentile Measurement variability in biometric dating: +/- 10 days from 12-20 weeks gestation, +/- 2 weeks from 20-30 weeks gestation, +/- 3 weeks at 30 weeks gestation or more. Other: Not applicable. IMPRESSION: 1. Single live intrauterine . 2. Gestational age today 36 weeks 3 days compared to initial scan of 33 weeks 1 day. It is noted femu r length gestational age lags behind other biometrics as above. This is overall nonspecific. we ight at the 46th percentile. Reviewed by: Jaycee Flaherty MD on 03/23/2021 8:54 AM PDT Approved by: Jaycee Flaherty MD on 03/23/2021 8:54 AM PDT Station ID: [id number]
== END 2021-03-22 18:58 | disposition home or self-care (01) ==
LOC: DI 18:57
PROVIDERS: ATTEND Nurse Practitioner Obstetrics & Gynecology
DX: O26.843 Uterine size-date discrepancy, third trimester (principal); Z3A.36 36 weeks gestation of pregnancy

== ENCOUNTER 2021-03-29 08:00 | Outpatient (CLI) | payer OTHER | END 2021-03-29 23:59 | disposition home or self-care (01) | LOC: LAB.WC 08:00 | PROVIDERS: ATTEND Nurse Practitioner Obstetrics & Gynecology | DX: Z36.85 Encounter for antenatal screening for Streptococcus B (principal) | CPT/HCPCS: 87797 ==

== ENCOUNTER 2021-04-27 20:05 | Inpatient (IN) | payer OTHER ==
[2021-04-27] MEDS ORDERED: LIDOCAINE-MPF 1% 30 ML VIAL ID PRN (20:11)
[2021-04-27] MEDS ORDERED: OXYTOCIN 10 UNIT/ML VIAL IM PRN (20:11)
[2021-04-27] MEDS ORDERED: CARBOPROST TROMETHAMINE 250 MCG/ML AMP IM PRN (20:11)
[2021-04-27] MEDS ORDERED: miSOPROStoL 200 MCG TABLET BC PRN (20:11)
[2021-04-27] MEDS ORDERED: TRANEXAMIC ACID IN NACL 1,000 MG/100 ML BAG IV PRN (20:11)
[2021-04-27] MEDS ORDERED: OXYTOCIN/SODIUM CHLORIDE 500 ML IV PRN (20:11)
[2021-04-27] MEDS ORDERED: METHYLERGONOVINE 0.2 MG/ML VIAL IM PRN (20:11)
[2021-04-27] MEDS ORDERED: SODIUM CHLORIDE FLUSH 0.9% 10 ML SYRINGE IVP PRN (20:11)
[2021-04-27 20:59] LABS: BASOPHILS % (AUTO) 0.2 %; EOSINOPHILS # (AUTO) 0.1 10^3/uL (0.0-0.7); EOSINOPHILS % (AUTO) 0.8 %; HCT - HEMATOCRIT 32.4 % (37.0-47.0); HGB - HEMOGLOBIN 10.6 g/dL (12.0-16.0); LYMPHOCYTES # (AUTO) 1.6 10^3/uL (1.5-3.5); LYMPHOCYTES % (AUTO) 19.7 %; MEAN CORPUSCULAR HEMOGLOBIN 29.4 pg (27.0-31.0); MEAN CORPUSCULAR HGB CONC 32.7 g/dL (32.0-36.0); MEAN CORPUSCULAR VOLUME 89.8 fL (81.0-99.0); MEAN PLATELET VOLUME 10.4 fL (7.9-10.8); MONOCYTES # (AUTO) 0.6 10^3/uL (0.0-1.0); MONOCYTES % (AUTO) 6.6 %; NEUTROPHILS % (AUTO) 72.3 %; PLT - PLATELET COUNT 211 10^3/uL (130-450); RED BLOOD COUNT 3.61 10^6/uL (4.20-5.40); RED CELL DISTRIBUTION WIDTH 13.2 % (12.0-15.0); WHITE BLOOD COUNT 8.3 x10^3/uL (4.8-10.8)
[2021-04-27] MEDS ORDERED: OXYTOCIN/SODIUM CHLORIDE 500 ML IV SCH (21:00)
[2021-04-27] MEDS: LACTATED RINGERS 1,000 ML IV SCH (22:41)
[2021-04-28] MEDS ORDERED: SODIUM CHLORIDE FLUSH 0.9% 10 ML SYRINGE IVP SCH ×2 (01:00→09:00)
[2021-04-28] MEDS ORDERED: ePHEDrine 50 MG/ML VIAL IVP ONE ×2 (01:52→05:35)
[2021-04-28] MEDS ORDERED: ROPIVACAINE 0.2% 200 MG/100 ML BAG EP ONE (01:52)
[2021-04-28] MEDS ORDERED: diphenhydrAMINE INJ 50 MG/ML VIAL IVP PRN (02:06)
[2021-04-28] MEDS ORDERED: NALOXONE 0.4 MG/ML VIAL IVP PRN ×2 (02:06→06:00)
[2021-04-28] MEDS ORDERED: ROPIVACAINE 0.2% 200 MG/100 ML BAG EP PRN (02:06)
[2021-04-28] MEDS ORDERED: ONDANSETRON 4 MG/2 ML VIAL IVP PRN ×2 (02:06→06:00)
[2021-04-28] MEDS ORDERED: NALBUPHINE 10 MG/ML AMP IVP PRN (02:06)
[2021-04-28] MEDS ORDERED: METOCLOPRAMIDE 10 MG/2 ML VIAL IVP PRN ×2 (02:06→06:00)
[2021-04-28] MEDS ORDERED: ePHEDrine 50 MG/ML VIAL IVP PRN ×2 (02:06→06:00)
--- NOTE | 2021-04-28 02:11 | ANESTHESIA ---
Pre-Anesthesia VS, & Labs - Diagnosis labor induction - Procedure labor epidural Vital Signs: Temp Pulse Resp BP Pulse Ox 36.7 C 83 17 116/73 04/27/21 20:21 04/27/21 20:21 04/27/21 20:21 04/27/21 20:21 Height: 5 ft Weight (kg): 75.75 kg Body Mass Index: 32.5 BMI Classification: Obese - NPO >8 hours - Is Patient ?: Yes - Lab Results Current Lab Results: Laboratory Tests 04/27/21 20:30: Blood Type B POSITIVE, Antibody Screen NEGATIVE 04/27/21 20:30: WBC 8.3, RBC 3.61 L, Hgb 10.6 L, Hct 32.4 L, MCV 89.8, MCH 29.4, MCHC 32.7, RDW 13.2, Plt Count 211, MPV 10.4, Neut # (Auto) 6.0, Lymph # (Auto) 1.6, Edmonson # (Auto) 0.6, Eos # (Auto) 0.1, Baso # (Auto) 0.0, Absolute Nucleated RBC 0.00, Nucleated RBC % 0.0 Fish Bones: 04/27/21 20:30 Home Medications and Allergies Active Medications Carboprost Tromethamine (Carboprost Tromethamine 250 Mcg/Ml Amp) 250 mcg IM Q15M PRN PRN Reason: Step 4: Hemorrhage protocol Stop: 05/02/21 20:12 Diphenhydramine HCl (Diphenhydramine Inj 50 Mg/Ml Vial) 12.5 - 25 mg IVP Q6HR PRN PRN Reason: ITCHING Ephedrine Sulfate (Ephedrine 50 Mg/Ml Vial) 5 mg IVP Q5M PRN PRN Reason: For SBP<100;give until SBP>100 Oxytocin/Sodium Chloride (Pitocin/Sodium Chloride) 500 mls @ 999 mls/hr IV PRN PRN; Protocol PRN Reason: POST- HEMORR PREVENTION Stop: 05/02/21 20:12 Tranexamic Acid (Tranexamic 1,000 Mg/100ml-Nacl) 1,000 mg in 100 mls @ 600 mls/hr IV .ONCE PRN PRN Reason: EBL >1200mL and within 3hr Stop: 05/02/21 20:12 Oxytocin/Sodium Chloride (Pitocin/Sodium Chloride) 500 mls @ 1 mls/hr IV TITR CHADD; Protocol Lactated Ringer's (Lr) 1,000 mls @ 150 mls/hr IV .Q6H40M CHADD Last Infusion: 04/28/21 01:30 Dose: 150 mls/hr Documented by: Ropivacaine (Naropin 0.2%) 200 mg in 100 mls @ 0 mls/hr EP PRN PRN; Protocol PRN Reason: PAIN Lidocaine HCl (Lidocaine-Mpf 1% 30 Ml Vial) 30 ml ID .ONCE PRN PRN Reason: PERINEAL REPAIR Stop: 05/02/21 20:12 Methylergonovine Maleate (Methylergonovine 0.2 Mg/Ml Vial) 0.2 mg IM .ONCE PRN PRN Reason: Step 2: Hemorrhage protocol Stop: 05/02/21 20:12 Metoclopramide HCl (Metoclopramide 10 Mg/2 Ml Vial) 10 mg IVP Q6HR PRN PRN Reason: Nausea / Vomiting Misoprostol (Misoprostol 200 Mcg Tablet) 800 mcg BC .ONCE PRN PRN Reason: Step 3: Hemorrhage protocol Stop: 05/02/21 20:12 Nalbuphine HCl (Nalbuphine 10 Mg/Ml Amp) 2.5 - 5 mg IVP Q4H PRN PRN Reason: ITCHING Naloxone HCl (Naloxone 0.4 Mg/Ml Vial) 0.1 mg IVP Q2M PRN PRN Reason: RR<8 Ondansetron HCl (Ondansetron 4 Mg/2 Ml Vial) 4 mg IVP Q6HR PRN PRN Reason: Nausea / Vomiting Oxytocin (Oxytocin 10 Unit/Ml Vial) 10 unit IM .ONCE PRN PRN Reason: Step one: If no IV access Stop: 05/02/21 20:12 Sodium Chloride (Sodium Chloride Flush 0.9% 10 Ml Syringe) 10 ml IVP PRN PRN PRN Reason: NEEDED PER PROVIDER ORDERS Sodium Chloride (Sodium Chloride Flush 0.9% 10 Ml Syringe) 10 ml IVP 0100,0900,1700 [facility] Iron,Carbonyl/Folic Acid/Mv-Mn [Active Fe Tablet] 1 each PO 02/08/20 No122/Iron/Folic Acid [ Multi Tablet] 324 PO DAILY 02/08/20 Allergies/Adverse Reactions: Allergies Allergy/AdvReac Type Severity Reaction Status Date / Time No Known Drug Allergies Allergy Verified 02/08/20 22:25 Anes History & Medical History - Anesthetic History Anesthesia Complications: reports: No previous complications - Medical History Cardiovascular: reports: None Pulmonary: reports: Tuberculosis Gastrointestinal: reports: None Urinary: reports: None Neuro: reports: None Musculoskeletal: reports: None Endocrine/Autoimmune: reports: None Blood Disorders: reports: None Skin: reports: None Smoking Status: Never smoker History of Cancer?: No Exam General: Alert, Oriented x3, Cooperative Dental: WNL Mouth Opening: Greater than 4 Fingerbreadths Mallampati classification: II Thyromental Distance: greater than 6 cm Respiratory: Lungs clear Cardiovascular: Regular rate Plan Anesthesia Type: Epidural Consent for Procedure(s) Verified and Reviewed: Yes Code Status: Attempt Resuscitation ASA classification: 2-Mild systemic disease Is this case an emergency?: No
[2021-04-28] MEDS: LACTATED RINGERS 1,000 ML IV SCH (02:31)
[2021-04-28] MEDS ORDERED: TERBUTALINE 1 MG/ML VIAL SUBQ ONE ×2 (03:14→03:59)
[2021-04-28] MEDS ORDERED: SODIUM CHLORIDE 0.9% 1,000 ML IV ONE (03:44)
--- NOTE | 2021-04-28 03:55 | HISTORY & PHYSICAL EXAMINATION ---
Admit History - Visit Reason Visit Reason: Other - : 2 Parity: 1 Premature: 0 Ectopic: 0 : 0 Care: positive: [facility] Risk/History: positive: None Complications This : positive: None Smoking Status: Never smoker - Mother's Labs Mother's Blood Type: positive: B Mother's RH: positive: Positive GBS: positive: Group B Step Negative Rubella Status: positive: Immune Meds/Allgy - Home Medications Home Medications: Ambulatory Orders Medication Instructions Recorded Confirmed Iron,Carbonyl/Folic Acid/Mv-Mn 1 each PO 02/08/20 [Active Fe Tablet] No122/Iron/Folic Acid 324 PO DAILY 02/08/20 [ Multi Tablet] - Allergies Allergies/Adverse Reactions: Allergies Allergy/AdvReac Type Severity Reaction Status Date / Time No Known Drug Allergies Allergy Verified 02/08/20 22:25 Review of Systems - Constitutional Constitutional: denies: Fatigue, Fever, Chills, Malaise - Eyes Eyes: denies: Blurred vision, Spots in vision, Dipolpia - Cardiovascular Cariovascular: denies: Irregular heart rate, Palpitations, Chest pain, Edema - Respiratory Respiratory: denies: Cough, SOB at rest - Gastrointestinal Gastrointestinal: denies: Abdominal pain, Constipation, Nausea, Vomiting - Integumentary Integumentary: denies: Rash, Pruritis - Neurological Neurological: denies: Headache Physical - Abdominal Exam Vital Signs: Temp Pulse Resp BP Pulse Ox 36.7 C 83 17 116/73 04/27/21 20:21 04/27/21 20:21 04/27/21 20:21 04/27/21 20:21 Contraction Frequency (min/apart): 3-5 Contraction Intensity: positive: Mild Uterine Resting Tone: positive: Soft - Monitoring Heart Rate Baseline: 150 Strip Review: positive: Category I - Presentation Presentation: positive: Vertex - Vaginal Exam Membranes: positive: Membranes intact Dilation (in cm): 4 Effacement (%): 50 Station: positive: -2 Cervical Position: positive: Anterior - Speculum Exam Speculum Exam Performed: positive: No Plan for Labor - Plan For Labor I expect patient to be DC'd or transferred within 96 hours.: Yes Plan for Labor: Marciano is a 21yo @ 40.5wks gestation by LMP c/w 13.5wk U/S who presented on 04/27/2021 at 2000 for induction of labor approaching postdates . She denies vaginal bleeding or leakage of fluid. She reports increased frequency and duration of contractions throughout the day today following her membrane sweep in the office this afternoon. She states the contractions are tolerable at this time and she is coping well. She reports +FM. [facility] her which has remained uncomplicated. She will be admitted to [facility] for induction of labor with AROM and pitocin. Dating criteria: LMP 07/16/2020 Initial U/S @ 13.5wks c/w LMP dating Serial exams - agree OB Hx: G1: 02/09/2020, @ 40wks, [facility], female G2: Current PMHx: no significant Surgical Hx: none Social Hx: Never smoker, no ETOH or IVDA. Tao Family Hx: Asthma- Mother; Diabetes- MGF; Stroke/CVA-MGM course: LMP: 07/16/2020 CHARLENE by LMP:04/21/2021 Initial U/S:10/16/2020 @ 13w5d c/w LMP (CHARLENE by us 04/18/2021) FINAL CHARLENE: 04/21/2021 B pos/Rubella immune VZV:immune Genetic testing: quad screen NEGATIVE FAS: WNL. Anterior placenta, no previa. 3VC. Size c/w dating (EFW 26%tile). FU us 03/22/21- EFW 2811g (46%tile); RIA 13.5 Glucola 121 (at 25.4wks- early result OKd by 02/07) Influenza: 03/29 TDAP 02/07 GBS @ 36.4wks NEGATIVE HSV: denies in self and partner Breast pump Rx 02/07/21 MOD: Anticipate ; Tao, Daughter Ayah (8months); "wait and see" approach to pain management - had epidural with her first; - struggled with her first but desires to try again with this baby pp contraception: pap:07/18/2019 Physical Exam: Normocephalic, atraumatic Heart RRR w/o M/G/R Lungs CTAB Abdomen gravis, soft, nontender FHR baseline 150s, moderate variability, + accels, occasional variable decelerations Contractions palpate mild every 3-5 minutes with soft resting tone SVE 4/50/-2, anterior. Vertex. AROM occurred and was noted to be a small amount of clear fluid with small amount of bloody show noted following exam. Bilateral LE's trace edema. Mood is good. Assessment: 21yo @ 40.5wks gestation by LMP c/w 13.5wk U/S Postdates GBS neg FHR Category I-overall reassuring Plan: Continuous monitoring Expectant management following AROM x 4 hours, then repeat SVE PRN and consider Pitocin for labor augmentation if needed. Jacuzzi PRN. Nitrous oxide PRN. Epidural per maternal request. Anticipate . Pt and partner verbalized understanding and agree to above plan. They deny further questions or concerns at this time.
[2021-04-28] MEDS ORDERED: LIDOCAINE-PF 2% 10 ML AMP SUBQ ONE (04:01)
--- NOTE | 2021-04-28 04:01 | PROVIDER PROGRESS NOTE ---
Labor Progress Note - Uterine Monitoring Uterine Monitoring Mode: positive: External toco Contraction Frequency (min/apart): 2-4 Contraction Intensity: positive: Strong Uterine Resting Tone: positive: Soft - Monitoring Monitor Mode: positive: External ultrasound Heart Rate Baseline: 160 Heart Rate Variability: positive: Moderate (6-25 bmp) Accelerations: positive: Absent Decelerations: positive: Late, Recurrent (>50% x20 min) Strip Review: positive: Category II - Vaginal Exam Dilation (in cm): 4 Effacement (%): 90 Station: -1 - Labor Progress Note Labor Progress Note/Additional Text: S: Pt has epidural for pain management and feels she was initially more comfortable than she is currently and she feels she has a spot on her right lower abdomen that is particular painful with contractions. She has not been able to sleep so she is feeling tired. Her is supportive at the bedside. O: SVE //-1 FHR baseline 160, moderate variability, no accels, intermittent variable decelerations, recurrent subtle late decelerations with intermittent prolonged late decelerations Contractions palpate strong every 2-3 minutes with soft resting tone A: 21yo @ 40.6wks gestation by LMP c/w 13.5wk U/S Postdates Early labor FHR Category II GBS neg P: Continuous monitoring Anesthesia notified to evaluate pain with epidural. Initiate amnioinfusion when pt comfortable with epidural Terbutaline now
[2021-04-28] MEDS ORDERED: OXYTOCIN 10 UNIT/ML VIAL ONE ×2 (05:33→05:47)
[2021-04-28] MEDS ORDERED: ONDANSETRON 4 MG/2 ML VIAL ONE (05:33)
[2021-04-28] MEDS ORDERED: KETOROLAC 30 MG/ML VIAL ONE (05:34)
[2021-04-28] MEDS ORDERED: ACETAMINOPHEN 1,000 MG/100 ML 100 ML IV ONE (05:34)
[2021-04-28] MEDS ORDERED: ROPIVACAINE 0.5% PF 20 ML AMPULE ONE (05:55)
[2021-04-28] MEDS ORDERED: ATROPINE ABBOJECT 1 MG/10 ML SYRINGE IVP PRN (06:00)
[2021-04-28] MEDS ORDERED: LACTATED RINGERS 1,000 ML IV SCH ×2 (06:00→07:00)
[2021-04-28] MEDS ORDERED: MORPHINE 2 MG/ML CARPUJECT IVP PRN (06:00)
[2021-04-28] MEDS ORDERED: fentaNYL 100 MCG/2 ML VIAL IVP PRN (06:00)
[2021-04-28] MEDS ORDERED: HYDROmorphone 0.5 MG/0.5 ML SYRINGE IVP PRN (06:00)
[2021-04-28] MEDS ORDERED: LACTATED RINGERS 1,000 ML IV ONE (06:27)
[2021-04-28] MEDS ORDERED: OXYTOCIN/SODIUM CHLORIDE 500 ML IV PRN (06:50)
[2021-04-28] MEDS ORDERED: SODIUM CHLORIDE FLUSH 0.9% 10 ML SYRINGE IVP PRN (06:50)
[2021-04-28] MEDS ORDERED: ONDANSETRON ODT 4 MG TABLET TL PRN (06:50)
--- NOTE | 2021-04-28 06:56 | OPERATIVE REPORT ---
Operative Report - General Admit Date: 04/27/21 Procedure Date: 04/28/21 Planned Procedure: Primary low transverse Pre-Op Diagnosis: IUP at 40+6 wga, intolerance of labor Procedure Performed: Primary low transverse Post Op Diagnosis: Same and delivery of term gestation, SGA infant - Procedure Note Primary Surgeon: Kitty Malave MD Secondary Surgeon: Antonia Cordoba CNM Anesthesia Provider: Romi Maki CRNA Pathology: Placenta to pathology Cord gases collected IV Fluids (mL): 1,400 Estimated Blood Loss (mL): 650 Urine Output (mL): 400 Indications: Marciano is a 21yo admitted @ 40.5wks gestation by LMP c/w 13.5wk U/S on 04/27/2021 at 1999 for induction of labor approaching postdates . She had been undergoing induction of labor. She had been having recurrent late decelerations remote form delivery. At 5 cm dilation, she had two deep prolonged decelerations in the setting of prolonged Cat II tracing. Light meconium noted in amniotic fluid. Decision was made to proceed with urgent . Findings: Female infant in vertex presentation. Thick meconium. Apgars 7/8 Weight 2775 g(SGA). Thin umbilical cord. Normal appearing uterus, tubes, ovaries. Cord gases: V: 7.27/42.2/32.4/18.9/20.2/-7.6 A: 7.232/42.4/20.4/17.4/18.7/-9.6 Complications: None - Other Other Information/Narrative: Risks benefits and alternatives of the procedure were discussed. Written informed consent was obtained. Patient was taken to the operating room where spinal anesthesia was placed and found to be adequate. She was prepped and draped in the usual sterile fashion in the dorsal supine position with a leftward tilt. Moss catheter was in place. SCDs were in place and activated. Cefazolin 2 g IV was given as a preoperative antibiotic. Preoperative timeout was performed. A Pfannenstiel incision was made in the skin with a scalpel and carried through the underlying layer of fascia in a combination of sharp and blunt dissection. The fascia was incised in the midline, and the incision was extended laterally with the Mae scissors. The superior aspect of the fascial incision was grasped with the Dez clamps, elevated, and the underlying rectus muscles were dissected off bluntly and sharply using the Mae scissors. Attention was then turned to the inferior aspect of the incision which in a similar fashion was grasped, tented up with Dez clamps, and the underlying rectus muscles dissected off bluntly and sharply using Mae scissors. The rectus muscles were then in the midline. The peritoneum was identified, tented up, and entered bluntly. The peritoneal incision was extended superiorly and inferiorly with good visualization of the bladder. The bladder that blade was then inserted. A bladder flap was not created. The lower uterine segment of the uterus was identified, and incised in a transv erse fashion with a scalpel. The uterus was entered bluntly. The uterine incision was extended in a craniocaudal fashion by manual stretch. The bladder blade was removed. The infant was delivered from from vertex position. Baby was wrapped in a warm sterile towel. Thick meconium noted. Delayed cord clamping was not performed. The cord was clamped x2 and cut. The was handed off to the waiting pediatricians. The placenta was removed with manual expression. The uterus was exteriorized and cleared of all clots clots and debris via manual swipe using Ray-Gennaro x2. The uterine incision was then repaired in a running locked fashion using 0 Vicryl suture. The incisoin was reinforced with a running imbricating layer again using 0-Vicryl suture. Excellent hemostasis was obtained. The uterus was returned to the abdomen. The gutters were cleared of all clots and debris. The pelvis was irrigated with sloppy wet lap sponges. The uterine defect was well visualized in normal anatomic position it was noted again to be hemostatic. The peritoneum was then reapproximated with 2-0 Vicryl in a running fashion. The rectus muscles were then reapproximated using interrupted [id number] sutures using 2-0 Chromic. Good hemostasis was noted. The fascia was then closed using 0 Vicryl in a running fashion starting from the left lateral edge to the midline. A second suture was used to close the fascia in a running fashion starting from the right lateral edge and meeting in the midline, agian using 0-Vicryl. The subcutaneous tissue was then irrigated and closed using 2-0 chromic in a running subcutaneous suture. Skin was closed in a running subcuticular suture using 4-0 Monocryl. Steri-Strips were applied to reinforce the incsion and dressing was applied. Procedure was well-tolerated and without complication. Sponge lap and needle counts were correct x2. Patient was taken to recovery room in stable condition. CORBIN Wagner CNM, assisted with retraction, delivery of the infant, and suturing.
[2021-04-28] MEDS ORDERED: SERTRALINE 50 MG TABLET PO SCH (09:00)
[2021-04-28] MEDS: SIMETHICONE CHEW 80 MG TABLET PO PRN ×2 (10:02→16:59)
[2021-04-28] MEDS: oxyCODONE 5 MG TABLET PO PRN ×3 (10:03→23:34)
[2021-04-28] MEDS: DOCUSATE SODIUM 100 MG CAPSULE PO SCH (10:03)
--- NOTE | 2021-04-28 10:27 | ANESTHESIA POST OP EVALUATION ---
Anesthesia Post Eval - Post Anesthesia Eval Vitals: Last Vital Signs Temp 36.6 C 04/28/21 06:48 Pulse 88 04/28/21 06:53 Resp 14 04/28/21 06:53 BP 117/65 04/28/21 06:53 Pulse Ox 100 04/28/21 06:53 CV Function Including HR & BP: Stable Pain Control: Satisfactory Nausea & Vomiting: Negative Mental Status: Baseline Respiratory Status: Airway Patent Hydration Status: Satisfactory Anesthesia Complications: None
[2021-04-28] MEDS: KETOROLAC 30 MG/ML VIAL IVP SCH ×3 (12:17→23:34)
[2021-04-28] MEDS: ACETAMINOPHEN 500 MG TABLET PO SCH (13:01)
[2021-04-29] MEDS: oxyCODONE 5 MG TABLET PO PRN (05:18)
[2021-04-29] MEDS: DOCUSATE SODIUM 100 MG CAPSULE PO SCH ×2 (05:19→19:47)
[2021-04-29] MEDS: SIMETHICONE CHEW 80 MG TABLET PO PRN (05:20)
[2021-04-29 06:20] LABS: BASOPHILS % (AUTO) 0.3 %; EOSINOPHILS # (AUTO) 0.1 10^3/uL (0.0-0.7); EOSINOPHILS % (AUTO) 0.7 %; HGB - HEMOGLOBIN 8.5 g/dL (12.0-16.0); LYMPHOCYTES # (AUTO) 1.7 10^3/uL (1.5-3.5); LYMPHOCYTES % (AUTO) 17.5 %; MEAN CORPUSCULAR HEMOGLOBIN 29.8 pg (27.0-31.0); MEAN CORPUSCULAR HGB CONC 32.7 g/dL (32.0-36.0); MEAN CORPUSCULAR VOLUME 91.2 fL (81.0-99.0); MEAN PLATELET VOLUME 9.9 fL (7.9-10.8); MONOCYTES # (AUTO) 0.5 10^3/uL (0.0-1.0); MONOCYTES % (AUTO) 5.1 %; NEUTROPHILS # (AUTO) 7.5 10^3/uL (1.5-6.6); NEUTROPHILS % (AUTO) 76.1 %; PLT - PLATELET COUNT 165 10^3/uL (130-450); RED BLOOD COUNT 2.85 10^6/uL (4.20-5.40); RED CELL DISTRIBUTION WIDTH 13.5 % (12.0-15.0); WHITE BLOOD COUNT 9.8 x10^3/uL (4.8-10.8)
[2021-04-29] MEDS: ACETAMINOPHEN 500 MG TABLET PO SCH ×2 (10:55→19:46)
[2021-04-29] MEDS: IBUPROFEN 600 MG TABLET PO SCH ×2 (10:56→18:14)
--- NOTE | 2021-04-29 11:02 | PROVIDER PROGRESS NOTE ---
Subjective - Prog Note Date Prog Note Date: 04/29/21 Prog Note Time: 11:00 - Subjective Subjective: Patient i8s doing well. Pain well managed. Has had Moss removed but has not yet voided. Has been up and outof bed. BF going well. Objective - Vital Signs/Intake & Output Reviewed Vital Signs: Yes Vital Signs: Vital Signs x48h Temp Pulse Resp BP Pulse Ox 04/29/21 08:00 97.7 F 88 16 98/58 L 100 04/29/21 05:41 97.7 F 76 20 104/62 Intake & Output: Intake & Output 04/26/21 04/27/21 04/28/21 04/29/21 23:59 23:59 23:59 23:59 Intake Total 316.35 4323.65 250 Output Total 2905 800 Balance 316.35 1418.65 -550 - Objective General Appearance: positive: No acute distress Respiratory: positive: No respiratory distress Cardiovascular: positive: Other (RR) Peripheral Pulses: 2+ Radial (R), 2+ Radial (L), 2+ Dorsalis pedis (R), 2+ Dorsalis pedis (L) Abdomen: positive: Other (Soft and appropriately tender. No distention. FF below umbi Dressing CDI) Back: positive: Nml inspection Skin: positive: Color nml Extremities: positive: Non-tender, No pedal edema Neurologic/Psychiatric: positive: Oriented x3 - Lab Results Fish Bones: 04/29/21 06:09 Other Labs: Lab Results x24hrs 04/29/21 Range/Units 06:09 WBC 9.8 (4.8-10.8) x10^3/uL RBC 2.85 L (4.20-5.40) 10^6/uL Hgb 8.5 L (12.0-16.0) g/dL Hct 26.0 L (37.0-47.0) % MCV 91.2 (81.0-99.0) fL MCH 29.8 (27.0-31.0) pg MCHC 32.7 (32.0-36.0) g/dL RDW 13.5 (12.0-15.0) % Plt Count 165 (130-450) 10^3/uL MPV 9.9 (7.9-10.8) fL Neut # (Auto) 7.5 H (1.5-6.6) 10^3/uL Lymph # (Auto) 1.7 (1.5-3.5) 10^3/uL [place] # (Auto) 0.5 (0.0-1.0) 10^3/uL Eos # (Auto) 0.1 (0.0-0.7) 10^3/uL Baso # (Auto) 0.0 (0.0-0.1) 10^3/uL Absolute Nucleated RBC 0.00 x10^3/uL Nucleated RBC % 0.0 /100WBC Assessment/Plan - Problem List (1) deliv NOS-unsp Impression: POD#1: Doing well Progressing along goals to discharge Awaiting first void Encourage ambulation Anticipate DC home tomorrow Rh pos/Rub imm
[2021-04-29] MEDS ORDERED: IBUPROFEN 600 MG TABLET PO SCH (12:00)
[2021-04-30] MEDS: IBUPROFEN 600 MG TABLET PO SCH ×2 (00:52→06:51)
[2021-04-30] MEDS: ACETAMINOPHEN 500 MG TABLET PO SCH (05:50)
[2021-04-30 09:31] VITALS: BP 109/70
--- NOTE | 2021-04-30 11:13 | PROVIDER PROGRESS NOTE ---
Subjective - Prog Note Date Prog Note Date: 04/30/21 Prog Note Time: 11:11 - Subjective Subjective: Patient is up and ambulating, tolerating po, and voiding. Pain is well managed with pain medications. Objective - Vital Signs/Intake & Output Reviewed Vital Signs: Yes Vital Signs: Vital Signs x48h Temp Pulse Resp BP Pulse Ox 04/30/21 09:15 98.4 F 78 16 109/70 100 04/30/21 05:45 98.2 F 75 16 114/63 100 Intake & Output: Intake & Output 04/27/21 04/28/21 04/29/21 04/30/21 23:59 23:59 23:59 23:59 Intake Total 316.35 4323.65 250 Output Total 2905 1450 Balance 316.35 1418.65 -1200 - Objective General Appearance: positive: No acute distress Respiratory: positive: No respiratory distress Cardiovascular: positive: Other (RR) Abdomen: positive: Other (S&NT/ND. Dressing removed. Steris in place. CDI FF below umbi) Skin: positive: Color nml Extremities: positive: Non-tender, No pedal edema Neurologic/Psychiatric: positive: Oriented x3 - Lab Results Fish Bones: 04/29/21 06:09 Assessment/Plan - Problem List (1) deliv NOS-unsp Impression: POD#2 s/p primary LTCS Doing well Meeting goals for discharge Routine DC instructions given DC to home Rh positive and Rubella immune
--- NOTE | 2021-04-30 11:19 | Discharge Plan ---
Discharge Plan Problem Reviewed?: Yes Disposition: Home, Self Care Condition: Good Prescriptions: Acetaminophen [Acetaminophen Extra Strength] 1,000 mg PO Q8H PRN #60 tablet PRN Reason: Pain Acetaminophen [Acetaminophen Extra Strength] 1,000 mg PO Q8H PRN #60 tablet PRN Reason: Pain Docusate Sodium 100Mg Capsule [Colace 100Mg Capsule] 100 - 200 mg PO BID PRN #60 cap PRN Reason: Constipation Docusate Sodium 100Mg Capsule [Colace 100Mg Capsule] 100 - 200 mg PO BID PRN #60 cap PRN Reason: Constipation Ferrous Gluconate 324 mg PO BID #60 tablet Ibuprofen [Motrin] 600 mg PO Q6H PRN #60 tab PRN Reason: Pain Ibuprofen [Motrin] 600 mg PO Q6H PRN #60 tab PRN Reason: Pain oxyCODONE [Roxicodone] 2.5 - 5 mg PO Q4H PRN #24 tablet PRN Reason: Severe Pain oxyCODONE [Roxicodone] 2.5 - 5 mg PO Q4H PRN #24 tablet PRN Reason: Severe Pain Ascorbic Acid [Vitamin C] 250 mg PO BID 2 Days #60 tablet Diet: Regular Activity Restrictions: Additional Comments (see below) Health Concerns: Pain medications: Ibuprofen 600 mg by mouth every 6 hours as needed for pain Acetaminophen 500-1000 mg by mouth every 8 hours as needed for pain Docusate 100-200 mg by mouth twice a day as needed for constipation Oxycodone 2.5-5 mg by mouth every 4 hours as needed for pain Anemia: Iron tablet 324 mg by jaxson twice daily Vitamin C 250 mg by mouth twice daily with iron Plan of Treatment: Follow up in clinic in one week Additional Instructions or Follow Up instructions: Nothing in the vagina for 6 weeks: No intercourse, tampons, douching Call for: -Fever greater than 100.5 -Pain that does not improve with pain medication -Heavy bleeding in which you are soaking a pad an hour for 2 hours in a row -Incision becomes hot, hard, red, starts to open, or leaks foul smelling fluid -Pain or swelling in one leg and not the other +/- shortness of breath or chest pain No lifting more than 10# for 4 weeks [address] while on narcotics Ok to shower. Let water run over the incision. Do not soap, scrub, or apply lotion. Pat dry with a clean towel or joseluis a electric wheelchair repairer. The surgical stickers will start to peel off and you can remove them when they do. Otherwise, the provider will remove them at your one week follow-up appointment. OK to use an unscented sanitary napkin or clean washcloth to keep the incision dry if the belly folds over the incision. No Smoking: If you smoke, Please STOP! Call for help. Follow-up with: Cheyanne Malave MD [Provider Admit Priv/Credential] -
[2021-04-30] MEDS: DOCUSATE SODIUM 100 MG CAPSULE PO SCH (11:23)
--- NOTE | 2021-04-30 11:24 | DISCHARGE SUMMARY ---
Discharge Summary Admit Date: 04/27/21 Discharge Date: 04/30/21 Discharging Provider: Frieda Condition at Discharge: Good Discharge Disposition: 01 Home, Self Care - DIAGNOSES Admission Diagnoses: IUP at 40+5 Discharge Diagnoses with Status of Each Condition: Same and delivery of term gestation via for intolerance of labor - HPI History of Present Illness: Marciano is a 21yo who presented @ 40.5wks gestation by LMP c/w 13.5wk U/S on 04/27/2021 at 2000 for induction of labor approaching postdates . She denied vaginal bleeding or leakage of fluid. She reported increased frequency and duration of contractions throughout the day today following her membrane sweep in the office the afternoon of presentation. She states the contractions were tolerable at this time and she was coping well. She reported +FM. She has been a patient of [facility] for the duration of her which has remained uncomplicated. She was admitted to [facility] for induction of labor with AROM and pitocin. Dating criteria: LMP 07/16/2020 Initial U/S @ 13.5wks c/w LMP dating Serial exams - agree OB Hx: G1: 02/09/2020, @ 40wks, [facility], female G2: Current PMHx: no significant Surgical Hx: none Social Hx: Never smoker, no ETOH or IVDA. Tao Turcios Hx: Asthma- Mother; Diabetes- MGF; Stroke/CVA-MGM course: LMP: 07/16/2020 CHARLENE by LMP:04/21/2021 Initial U/S:10/16/2020 @ 13w5d c/w LMP (CHARLENE by us 04/18/2021) FINAL CHARLENE: 04/21/2021 B pos/Rubella immune VZV:immune Genetic testing: quad screen NEGATIVE FAS: WNL. Anterior placenta, no previa. 3VC. Size c/w dating (EFW 26%tile). FU us 03/22/21- EFW 2811g (46%tile); RIA 13.5 Glucola 121 (at 25.4wks- early result OKd by 02/07) Influenza: 03/29 TDAP 02/07 GBS @ 36.4wks NEGATIVE HSV: denies in self and partner Breast pump Rx 02/07/21 MOD: Anticipate ; Tao, Daughter Ayah (8months); "wait and see" approach to pain management - had epidural with her first; - struggled with her first but desires to try again with this baby pp contraception: pap:07/18/2019 - CONSULTS | PROCEDURES Consultations: Obstetrics (transfer from Midwifery) Procedures: Primary Low transverse - HOSPITAL COURSE Hospital Course: Marciano is a 21yo admitted @ 40.5wks gestation by LMP c/w 13.5wk U/S on 04/27/2021 at 2000 for induction of labor approaching postdates . She had been undergoing induction of labor. She had been having recurrent late decelerations remote form delivery. At 5 cm dilation, she had two deep prolonged decelerations in the setting of prolonged Cat II tracing. Light meconium noted in amniotic fluid. Decision was made to proceed with urgent . She delivered a female infant from vertex presentation. Thick meconium present. Apgars 7/8 Weight 2775 g(SGA). Thin umbilical cord. Normal appearing uterus, tubes, ovaries. Cord gases: V: 7.27/42.2/32.4/18.9/20.2/-7.6 A: 7.232/42.4/20.4/17.4/18.7/-9.6 Procedure was well tolerated and without complication. Postoperative course was uncomplicated. By POD#2, she was meeting goals for dis charge. Routine discharge instructions given. Confirmed Rh positive and Rubella immune. - ALLERGIES Allergies/Adverse Reactions: Allergies Allergy/AdvReac Type Severity Reaction Status Date / Time No Known Drug Allergies Allergy Verified 02/08/20 22:25 - MEDICATIONS Home Medications: Ambulatory Orders Medication Instructions Recorded Confirmed Iron,Carbonyl/Folic Acid/Mv-Mn 1 each PO 02/08/20 [Active Fe Tablet] No122/Iron/Folic Acid 324 PO DAILY 02/08/20 [ Multi Tablet] Acetaminophen [Acetaminophen Extra 1,000 mg PO Q8H PRN #60 tablet 04/30/21 Strength] Acetaminophen [Acetaminophen Extra 1,000 mg PO Q8H PRN #60 tablet 04/30/21 Strength] Ascorbic Acid [Vitamin C] 250 mg PO BID 2 Days #60 tablet 10/30/21 Docusate Sodium 100Mg Capsule 100 - 200 mg PO BID PRN #60 cap 04/30/21 [Colace 100Mg Capsule] Docusate Sodium 100Mg Capsule 100 - 200 mg PO BID PRN #60 cap 04/30/21 [Colace 100Mg Capsule] Ferrous Gluconate 324 mg PO BID #60 tablet 04/30/21 Ibuprofen [Motrin] 600 mg PO Q6H PRN #60 tab 04/30/21 Ibuprofen [Motrin] 600 mg PO Q6H PRN #60 tab 04/30/21 oxyCODONE [Roxicodone] 2.5 - 5 mg PO Q4H PRN #24 tablet 04/30/21 oxyCODONE [Roxicodone] 2.5 - 5 mg PO Q4H PRN #24 tablet 04/30/21 - PHYSICAL EXAM AT DISCHARGE General Appearance: positive: No acute distress Respiratory: positive: No respiratory distress Cardiovascular: positive: Other (RR) Peripheral Pulses: positive: 2+ Abdomen: positive: Other (S&NT/ND. FF below umbi. Dressing removed. Incision CDI) Skin: positive: Color nml Extremities: positive: Non-tender, No pedal edema Neurologic/Psychiatric: positive: Oriented x3 ( ) - LABS Result Diagrams: 04/29/21 06:09 - FOLLOW UP Follow Up: [address] Malave - TIME SPENT Time Spent in Discharge (Minutes): 30
== END 2021-04-30 13:03 | disposition home or self-care (01) | DRG 788 ==
LOC: WFO 20:05 → FBP 20:07 → WFO 20:10 → FBP 20:11
PROVIDERS: ADMIT Nurse Practitioner Obstetrics & Gynecology; ATTEND Nurse Practitioner Obstetrics & Gynecology
PROC: 10907ZC Drainage of Amniotic Fluid, Therapeutic from Products of Conception, Via Natural or Artificial Opening (ICD-10-PCS; principal; 2021-04-27)
PROC: 3E0DXGC Introduction of Other Therapeutic Substance into Mouth and Pharynx, External Approach (ICD-10-PCS; 2021-04-27)
PROC: 10D00Z1 Extraction of Products of Conception, Low, Open Approach (ICD-10-PCS; 2021-04-28)
DX: O48.0 Post-term pregnancy (principal); Z3A.40 40 weeks gestation of pregnancy; O76 Abnormality in fetal heart rate and rhythm complicating labor and delivery; O77.0 Labor and delivery complicated by meconium in amniotic fluid; Z37.0 Single live birth; O99.214 Obesity complicating childbirth
CPT/HCPCS: 36415; 85025; 86850; 86900; 86901; A9270; J0131; J7120